=== PATIENT | female | born 1965 | race Two or more races ===

== ENCOUNTER → 2022-01-14 | Day surgery (SDC) | payer MEDICARE, MEDICAID ==
[2022-01-10 09:14] LABS: Urine Amorphous Crystal MOD /hpf (None Seen); Urine Bacteria NONE SEEN /hpf (None Seen); Urine Blood Negative /uL (Negative); Urine Budding Yeast FEW /hpf (None Seen); Urine Specific Gravity 1.011 (1.001-1.035); Urine WBC <1 /hpf (0 - 5)
[2022-01-10 10:54] LABS: Calcium 9.6 mg/dL (8.5-10.1); Potassium 4.2 mmol/L (3.5-5.1)
[2022-01-10 10:58] LABS: Albumin 3.9 g/dL (3.4-5.0); BUN/Creatinine Ratio 16.7; Basophils # (auto) 0 10 ^3/uL (0-0.2); Basophils % (auto) 0.3 % (0.0-2.0); Bilirubin, Total 0.4 mg/dL (0.2-1.0); Eosinophils # (auto) 0.1 10 ^3/uL (0-0.8); Eosinophils % (auto) 1.3 % (0.0-7.0); Hemoglobin 14.1 g/dL (12.2-16.2); Lymphocytes % (auto) 43.8 % (10.0-50.0); Mean Corpuscular Hgb Conc. 33.5 g/dL (32.0-36.0); Mean Corpuscular Volume 98.5 fL (80.0-100.0); Monocytes # (auto) 0.5 10 ^3/uL (0-1.3); Neutrophils # (auto) 3.3 10 ^3/uL (1.6-8.6); Neutrophils % (auto) 47.6 % (37.0-80.0); Red Blood Cells 4.27 10^6/uL (4.0-5.20); Red Cell Distribution Width 13.4 % (11.8-14.3); Total Protein 7.4 g/dL (6.4-8.2)
[~2022-01-14] VITALS: Ht 165.1 cm; Wt 95.3 kg
[~2022-01-14] MED LIST: BUPIVACAINE HCL 50 ML ONE; DexAMETHasone SOD PHOS 4 MG/1ML SDV INJ ONE; EPINEPHrine HCL 1 MG/1 ML AMP ONE; ESCI20TA PO; FENO200C PO; HYDROmorphone HCL 2 MG/ML VL IV PRN; IBUP800T27 PO; ICOS1CAP2 PO; LEVO25TA6 PO; LIDOCAINE 2% (LOCAL ANESTH.) PF 5ml SDV ONE; LOSA-69 PO; MIDAZOLAM HCL 2MG/2ML 2ml VIAL (1mg/ml) ONE; ONDANSETRON HCL 4 MG/2 ML VIAL IV PRN; ONDANSETRON HCL 4 MG/2 ML VIAL ONE; PERCOT PO; PROPOFOL 10 MG/ML 20 ML IV ONE; ROCURONIUM 10MG/ML 10ML VIAL IV ONE; SUCCINYLCHOLINE CHLORIDE 20 MG/ML 10ML VIAL IV ONE; ceFAZolin 1GM/50ML 100 ML IV ONE; ePHEDrine SULFATE 50 MG/ML AMP IV ONE; fentaNYL CITRATE 5 ML ONE
[2022-01-14] MEDS: HYDROmorphone HCL 2 MG/ML VL IV PRN ×2 (12:06→13:24)
[2022-01-14 14:20] VITALS: BP 105/59
== END | disposition home or self-care (01) ==
LOC: SUR 06:23
PROVIDERS: ATTEND Orthopaedic Surgery Sports Medicine
DX: S73.102A Unspecified sprain of left hip, initial encounter (principal); S76.012A Strain of muscle, fascia and tendon of left hip, initial encounter; M94.252 Chondromalacia, left hip; I10 Essential (primary) hypertension; E03.9 Hypothyroidism, unspecified; F32.9 Major depressive disorder, single episode, unspecified; E66.01 Morbid (severe) obesity due to excess calories; K21.9 Gastro-esophageal reflux disease without esophagitis; M19.90 Unspecified osteoarthritis, unspecified site; Z68.34 Body mass index [BMI] 34.0-34.9, adult; X58.XXXA Exposure to other specified factors, initial encounter; Y93.89 Activity, other specified; Y92.89 Other specified places as the place of occurrence of the external cause; Y99.8 Other external cause status
CPT/HCPCS: 29862; 36415; 73501; 76000; 80053; 81001; 85025; C1713; C1776; J0171; J0330; J0690; J1100; J1170; J2001; J2250; J2405; J2704; J3010; J3490; U0003